=== PATIENT | female | born 1955 ===

== ENCOUNTER 2018-10-30 11:08 | Emergency (ER) | payer BC ==
[2018-10-30] MEDS ORDERED: Lidocaine 1% (PF) 30 ML VIAL ONE (11:16)
[2018-10-30] MEDS ORDERED: Triple Antibiotic Oint 1 GM Packet ONE (11:47)
== END 2018-10-30 12:12 | disposition home or self-care (01) ==
LOC: NAV ERS 11:08
DX: S61.012A Laceration without foreign body of left thumb without damage to nail, initial encounter (principal); E11.9 Type 2 diabetes mellitus without complications; M10.9 Gout, unspecified; I10 Essential (primary) hypertension; E66.9 Obesity, unspecified; Z87.891 Personal history of nicotine dependence; W26.8XXA Contact with other sharp object(s), not elsewhere classified, initial encounter
CPT/HCPCS: 12001; J2001